=== PATIENT | male | born 1995 | race Caucasian/White ===

== ENCOUNTER 2023-05-03 10:12 | Outpatient (RCR) | payer OTHER | END 2023-05-05 | LOC: M ST 10:12 | DX: S06.2X9D Diffuse traumatic brain injury with loss of consciousness of unspecified duration, subsequent encounter (principal) ==

== ENCOUNTER → 2023-07-07 | Outpatient (CLI) | payer OTHER | LOC: M RAD 15:53 | PROVIDERS: ATTEND Physical Medicine & Rehabilitation | DX: S06.9X5S Unspecified intracranial injury with loss of consciousness greater than 24 hours with return to pre-existing conscious level, sequela (principal); G93.89 Other specified disorders of brain ==

== ENCOUNTER 2023-08-16 11:01 | Outpatient (RCR) | payer OTHER | END 2023-09-04 | LOC: M ST 11:01 | PROVIDERS: ATTEND Physical Medicine & Rehabilitation | DX: S06.9X5S Unspecified intracranial injury with loss of consciousness greater than 24 hours with return to pre-existing conscious level, sequela (principal); R41.3 Other amnesia; R41.89 Other symptoms and signs involving cognitive functions and awareness; R46.89 Other symptoms and signs involving appearance and behavior ==

== ENCOUNTER 2023-09-14 13:12 | Outpatient (RCR) | payer OTHER | END 2023-10-05 | LOC: M ST 13:12 | PROVIDERS: ATTEND Physical Medicine & Rehabilitation | DX: S06.9X5S Unspecified intracranial injury with loss of consciousness greater than 24 hours with return to pre-existing conscious level, sequela (principal) ==